=== PATIENT | female | born 1985 | race Two or more races ===

== ENCOUNTER → 2023-06-15 | Emergency (ER) | payer OTHER ==
[~2023-06-15] VITALS: Ht 149.9 cm; Wt 63.5 kg
[~2023-06-15] MED LIST: FOLIC ACID0.8 M1; MOTRIN800 MG PO
[2023-06-15 17:18] LABS: INR 1.01; PARTIAL THROMBOPLASTIN TIME 26.9 SECONDS (22.0-34.0); PROTHROMBIN TIME 10.6 SECONDS (9.0-11.5)
[2023-06-15 17:34] LABS: HEMATOCRIT 38.1 % (36.0-45.00); HEMOGLOBIN 12.8 g/dL (12.0-15.00); MEAN CELL VOLUME 84.6 fL (80.00-100.00); MEAN CORPUSCULAR HEMOGLOBIN 28.4 pg (27.00-32.0); MEAN CORPUSCULAR HGB CONC 33.6 g/dl (32.0-36.0); PLATELET COUNT 179 K/uL (150-450); RED CELL DISTRIBUTION WIDTH 12.4 % (11.5-14.5)
[2023-06-15 17:37] LABS: CALCIUM 8.8 mg/dL (8.5-10.1); CREATININE SERUM 0.65 mg/dL (0.55-1.02); GFR 103.13; POTASSIUM 3.85 mEq/L (3.5-5.1)
== END | disposition home or self-care (01) ==
LOC: ER 14:02
PROVIDERS: General Practice
DX: O20.9 Hemorrhage in early pregnancy, unspecified (principal); Z3A.01 Less than 8 weeks gestation of pregnancy